=== PATIENT | male | born 1975 | race Caucasian/White ===

== ENCOUNTER 2023-03-01 12:19 | Emergency (ER) | payer MEDICAID ==
[~2023-03-01] VITALS: Ht 175.3 cm; Wt 108.0 kg
[2023-03-01 12:43] LABS: BASOPHILS # (AUTO) 0.1 X10'3 (0-0.2); BASOPHILS % (AUTO) 0.6 % (0-1); EOSINOPHILS # (AUTO) 0.1 X10'3 (0-0.9); EOSINOPHILS % (AUTO) 1.2 % (0-6); HEMATOCRIT 48.3 % (42.0-52.0); HEMOGLOBIN 16.4 g/dl (14.0-17.9); LYMPHOCYTES # (AUTO) 2.2 X10'3 (1.1-4.8); LYMPHOCYTES % (AUTO) 21.7 % (21-51); MEAN CORPUSCULAR HEMOGLOBIN 29.3 PG (27.0-31.0); MEAN CORPUSCULAR HGB CONC 33.9 g/dL (33.0-36.5); MEAN CORPUSCULAR VOLUME 86.4 FL (78-98); MEAN PLATELET VOLUME 7.5 FL (7.4-10.4); MONOCYTES # (AUTO) 0.6 X10'3 (0-0.9); MONOCYTES % (AUTO) 6.2 % (2-12); NEUTROPHILS # (AUTO) 7.1 X10'3 (1.8-7.7); NEUTROPHILS % (AUTO) 70.3 % (42-75); PLATELET COUNT 278 X10'3 (140-440); RED BLOOD COUNT 5.59 X10'6 (4.70-6.10); RED CELL DISTRIBUTION WIDTH 13.7 % (11.5-14.5); WHITE BLOOD COUNT 10.1 X10'3 (4.5-11.0)
[2023-03-01 13:11] LABS: ALBUMIN 4.1 G/DL (3.4-5.0); ALBUMIN/GLOBULIN RATIO 1.2 (1.1-1.5); BLOOD UREA NITROGEN 11 MG/DL (7-18); CHLORIDE 102 MMOL/L (99-107); POTASSIUM 4.6 MMOL/L (3.5-5.1); SODIUM 137 MMOL/L (135-145)
[2023-03-01 13:23] LABS: ALANINE AMINOTRANSFERASE 41 U/L (12-78); ALKALINE PHOSPHATASE 94 IU/L (46-116); ANION GAP 8 (8-16); BILIRUBIN,TOTAL 0.4 MG/DL (0.1-1.0); BUN/CREATININE RATIO 10.8 (10.0-20.0); CALCIUM 9.1 MG/DL (8.5-10.1); CREATININE 1.02 MG/DL (0.60-1.10); GLUCOSE 186 MG/DL (70-104); TOTAL CARBON DIOXIDE 27.1 MMOL/L (24-32); TOTAL PROTEIN 7.5 G/DL (6.4-8.2); eGFR 78 ML/MIN
[2023-03-01 14:06] LABS: ASPARTATE AMINO TRANSFERASE 22 U/L (10-37)
--- NOTE | 2023-03-01 15:19 | NUR ---
pt denies CP at this time - VS updated
[2023-03-01] MEDS ORDERED: LORazepam 2 mg/ml vial IV ONE (15:20)
[2023-03-01] MEDS ORDERED: cloNIDine 0.1 mg tablet PO ONE (15:20)
[2023-03-01] MEDS ORDERED: AMLO5TAB4 PO (16:15)
[2023-03-01] MEDS ORDERED: hyDRALAzine 10mg tablet PO ONE (16:15)
[2023-03-01 16:29] VITALS: BP 166/122
== END 2023-03-01 16:30 | disposition home or self-care (01) ==
LOC: ER 12:20
DX: I16.1 Hypertensive emergency (principal); F15.10 Other stimulant abuse, uncomplicated
CPT/HCPCS: 36415; 71045; 80053; 83880; 84484; 85025; 93005; 96374; 99285; J2060; J7030